=== PATIENT | female | born 1965 ===

== ENCOUNTER 2018-03-09 07:07 | Emergency (ER) | payer SELFPAY ==
[2018-03-09 07:31] VITALS: BP 146/93
--- NOTE | 2018-03-09 07:53 | UC ---
Skin Complaint HPI - HPI Summary HPI Summary: 52 year old female with tick bite. Patient presents with a tick bite to her left flank. She removed the tick this morning. She has a reddenned area and complains of soreness. 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 [ End ] - History of Current Complaint Chief Complaint: UCSkin Time Seen by Provider: 03/09/18 07:49 Stated Complaint: TICK BITE Hx Obtained From: Patient ?: Yes Onset/Duration: Sudden Onset Timing: Constant Pain Intensity: 0 - Allergy/Home Medications Allergies/Adverse Reactions: Allergies Allergy/AdvReac Type Severity Reaction Status Date / Time Adhesive Tape Allergy SKIN Verified 03/09/18 07:20 REDNESS, RASH Home Medications: Home Medications Lisinopril/HCTZ 20/12.5(NF) [Zestoretic 20/12.5(NF)] 1 tab PO DAILY 03/09/18 [ History Confirmed 03/09/18] Varenicline (NF) [Chantix 1 MG TAB (NF)] 1 mg PO DAILY 03/09/18 [History Confirmed 03/09/18] Review of Systems Skin: Rash Is Patient Immunocompromised?: No All Other Systems Reviewed And Are Negative: Yes PMH/Surg Hx/FS Hx/Imm Hx Cardiovascular History: Hypertension GI/ History: Gastroesophageal Reflux - Surgical History Surgical History: Yes Surgery Procedure, Year, and Place: 1981- [facility] LESION REMOVED FROM LEFT DENOMINATIONAL. 2012 - [facility] CYST LT WRIST - Family History Known Family History: Positive: Cardiac Disease - Social History Occupation: Employed Full-time - [employer] Alcohol Use: Occasionally Substance Use Type: None Smoking Status (MU): Former Smoker Type: Cigarettes Amount Used/How Often: 40 years Physical Exam Triage Information Reviewed: Yes Appearance: Well-Appearing Vital Signs: Initial Vital Signs Temp 97.7 F 03/09/18 07:24 Pulse 67 03/09/18 07:24 Resp 16 03/09/18 07:24 BP 146/93 03/09/18 07:24 Pulse Ox 97 03/09/18 07:24 Vital Signs Reviewed: Yes Eyes: Positive: Conjunctiva Clear ENT: Positive: Normal ENT inspection Musculoskeletal Exam: Normal Neurological Exam: Normal Psychological Exam: Normal Skin Exam: Normal Skin: Positive: Other - left flank small reddened area 5x5 mm. no em. no streaking. no tick left . Course/Dx - Course Course Of Treatment: she is aware of low risk of getting lyme but is requesting prophylaxis and aware of SE. tick was removd in whole at home. tick likely on her for < 24 hours - Differential Diagnoses - Skin Complaint Differential Diagnoses: Tick Born Illness, Other - tick bite - Diagnoses Provider Diagnoses: tick bite left flank. hypertension: taking meds and follow up with PCP Discharge - Sign-Out/Discharge Documenting (check all that apply): Discharge/Admit/Transfer - Discharge Plan Condition: Good Disposition: HOME Prescriptions: Doxycycline Hyclate 100 mg PO ONCE #2 tablet Patient Education Materials: Tick Bite (ED) Referrals: Guerda Colindres MD [Primary Care Provider] - 4 Days - Billing Disposition and Condition Condition: GOOD Disposition: HOME
== END 2018-03-09 08:10 | disposition home or self-care (01) ==
LOC: UCEAST 07:07
DX: S30.861A Insect bite (nonvenomous) of abdominal wall, initial encounter (principal); W57.XXXA Bitten or stung by nonvenomous insect and other nonvenomous arthropods, initial encounter; Y93.9 Activity, unspecified; Y92.9 Unspecified place or not applicable; Z87.891 Personal history of nicotine dependence
CPT/HCPCS: 99212; G0463